=== PATIENT | female | born 1995 | race Caucasian/White ===

== ENCOUNTER → 2018-04-19 10:22 | Outpatient (CLI) | payer OTHER, SELFPAY ==
[2018-04-19 13:32] LABS: Chlamydia Trachomatis by PCR Negative (Negative); Neisserai gonorrhoeae by PCR Negative (Negative); Probe Check PASS; Sample Adequacy Control PASS; Specimen Processing Control PASS
[2018-04-23 08:16] LABS: HPV Reflexed? NOT INDICATED
== END ==
PROVIDERS: Visit Provider Obstetrics & Gynecology
DX: Z12.4 Encounter for screening for malignant neoplasm of cervix (principal)
CPT/HCPCS: 87491; 87591; 87624; 88175; G0145